=== PATIENT | male | born 1980 | race African-American/Black ===

== ENCOUNTER 2018-07-13 18:34 | Emergency (ER) | payer SELFPAY ==
[~2018-07-13] VITALS: Ht 180.3 cm; Wt 104.5 kg
[~2018-07-13 18:34] MED LIST: NO HOME MEDS; PRILOSEC OTC20 MG OR; PRILOSEC20 MG PO
[2018-07-13] MEDS ORDERED: GENTAK0.32 OD (20:36)
[2018-07-13] MEDS ORDERED: NO HOME MEDS (20:48)
[2018-07-13 20:50] VITALS: BP 132/89
== END 2018-07-13 20:50 | disposition home or self-care (01) | DRG 125 ==
LOC: ED 18:34
DX: S05.01XA Injury of conjunctiva and corneal abrasion without foreign body, right eye, initial encounter (principal); I10 Essential (primary) hypertension; X58.XXXA Exposure to other specified factors, initial encounter

== ENCOUNTER 2018-10-21 07:00 | Emergency (ER) | payer SELFPAY ==
[~2018-10-21] VITALS: Ht 180.3 cm; Wt 115.0 kg
[~2018-10-21 07:00] MED LIST changes: +GENTAK0.32 OD
[2018-10-21] MEDS ORDERED: LISINOP/HCTZ1 TA2 PO (07:13)
[2018-10-21] MEDS ORDERED: AMOX/K CLAV875 M1 PO (07:17)
[2018-10-21 07:42] LABS: HEMATOCRIT 42.3 % (39.0-50.0); HEMOGLOBIN 14.1 g/dl (14.0-18.0); IMMATURE GRANULOCYTES 0.7 % (0.0-5.0); MEAN CELL VOLUME 92.8 fL CALC (80.0-100.0); MEAN CORPUSCULAR HGB 30.9 pG CALC (26.0-32.0); MEAN CORPUSCULAR HGB CONC 33.3 g/L CALC (32.0-36.0); NEUT# 9.58 thou/uL (1.82-7.42); RED BLOOD COUNT 4.56 mill/uL (4.70-6.10); RED CELL DISTRI WIDTH 13.2 % (11.5-15.5)
[2018-10-21 08:09] LABS: ANION GAP 12 (6-22 (CALC)); BUN 14 mg/dL (9-20); BUN/CREATININE RATIO 11 (12-20 (CALC)); CARBON DIOXIDE 29 mmol/l (22-30); CHLORIDE 99 mmol/l (95-108); CREATININE 1.3 mg/dL (0.7-1.3); GFR > 60 ML/MIN (>=60 (CALC)); GFR FOR AFR.AMER. > 60 ML/MIN (>=60 (CALC)); POTASSIUM 3.8 mmol/l (3.5-5.1); SODIUM 136 mmol/l (137-146)
[2018-10-21 09:08] VITALS: BP 132/81
== END 2018-10-21 09:08 | disposition home or self-care (01) | DRG 153 ==
LOC: ED 07:00
PROVIDERS: Family Medicine
DX: J02.0 Streptococcal pharyngitis (principal); R07.9 Chest pain, unspecified; R51 Headache; R50.9 Fever, unspecified

== ENCOUNTER 2024-04-04 13:09 | Emergency (ER) | payer OTHER ==
[2024-04-04] VITALS (12 sets, daily range): BP systolic 138–173; BP diastolic 97–112
[~2024-04-04] VITALS: Ht 180.3 cm; Wt 98.0 kg
[~2024-04-04 13:09] MED LIST changes: +AMOX/K CLAV875 M1 PO; +LISINOP/HCTZ1 TA2 PO
[2024-04-04] MEDS ORDERED: KETOROLAC TROMETHAMINE 30 MG/ML SDV IM ONE (14:50)
[2024-04-04] MEDS ORDERED: traMADol HCL 50 MG/TAB PO ONE (14:50)
[2024-04-04] MEDS ORDERED: LISINOPRIL 20 MG/TAB PO ONE (14:50)
[2024-04-04] MEDS ORDERED: ORPHENADRINE CITRATE 30 MG/ML AMP IM ONE (14:50)
[2024-04-04 15:11] LABS: URINE BLOOD DIPSTICK Negative (NEGATIVE); URINE GLUCOSE - DIPSTICK Negative (NEGATIVE); URINE KETONE 40 mg/dL (NEGATIVE); URINE LEUK ESTERASE Negative (NEGATIVE); URINE NITRITE - DIPSTICK Negative (Negative); URINE PH 5.5 (4.5-8.0); URINE PROTEIN - DIPSTICK Trace mg/dL (NEG-TRACE); URINE SPECIFIC GRAVITY 1.025
[2024-04-04 15:28] LABS: URINE COLOR Yellow
[2024-04-04] MEDS ORDERED: METHOCARBAMOL500 MG PO (17:02)
[2024-04-04] MEDS ORDERED: TRAMADOL HYDROC50 M1 PO (17:02)
[2024-04-04] MEDS ORDERED: NAPROXEN500 MG PO (17:02)
== END 2024-04-04 17:45 | disposition home or self-care (01) | DRG 103 ==
LOC: ED 13:09
PROVIDERS: Nurse Practitioner
DX: R51.9 Headache, unspecified (principal); M54.2 Cervicalgia; M54.9 Dorsalgia, unspecified; S01.01XA Laceration without foreign body of scalp, initial encounter; S81.012A Laceration without foreign body, left knee, initial encounter; T14.8XXA Other injury of unspecified body region, initial encounter; I10 Essential (primary) hypertension; V49.40XA Driver injured in collision with unspecified motor vehicles in traffic accident, initial encounter
CPT/HCPCS: J2360

== ENCOUNTER 2024-04-15 08:37 | Emergency (ER) | payer OTHER ==
[~2024-04-15] VITALS: Ht 180.3 cm; Wt 98.0 kg
[~2024-04-15 08:37] MED LIST changes: +METHOCARBAMOL500 MG PO; +NAPROXEN500 MG PO; +TRAMADOL HYDROC50 M1 PO
[2024-04-15 08:51] VITALS: BP 146/104
[2024-04-15 09:00] VITALS: BP 155/106
[2024-04-15 09:07] VITALS: BP 155/106
== END 2024-04-15 09:25 | disposition home or self-care (01) | DRG 950 ==
LOC: ED 08:37
DX: S01.01XD Laceration without foreign body of scalp, subsequent encounter (principal); S81.012D Laceration without foreign body, left knee, subsequent encounter; X58.XXXD Exposure to other specified factors, subsequent encounter; I10 Essential (primary) hypertension